=== PATIENT | male | born 1960 | race Caucasian/White ===

== ENCOUNTER → 2017-09-29 | Outpatient (CLI) | payer BC | LOC: COL.RAD 08:44 | DX: M25.512 Pain in left shoulder (principal) | CPT/HCPCS: J3301; Q9967 ==

== ENCOUNTER → 2019-09-20 | Outpatient (CLI) | payer BC | LOC: COL.RAD 07:14 | DX: K57.30 Diverticulosis of large intestine without perforation or abscess without bleeding (principal); M43.17 Spondylolisthesis, lumbosacral region | CPT/HCPCS: Q9967 ==